=== PATIENT | female | born 1955 | race Hispanic/Latino ===

== ENCOUNTER 2018-02-20 23:50 | Emergency (ER) | payer OTHER ==
[~2018-02-20] VITALS: Ht 154.9 cm; Wt 104.3 kg
[2018-02-21] MEDS ORDERED: ZIPRASIDONE 20 MG VIAL IM STA (00:51)
[2018-02-21] MEDS ORDERED: BENADRYL25 M1 PO (00:54)
[2018-02-21] MEDS ORDERED: PEPCID20 MG PO (00:54)
[2018-02-21] MEDS ORDERED: MEDROL4 MG PO (00:54)
[2018-02-21] MEDS ORDERED: ZIPRASIDONE 20 MG VIAL IM ONE (01:02)
== END 2018-02-21 01:00 | disposition home or self-care (01) ==
LOC: FSED 23:50
DX: R21 Rash and other nonspecific skin eruption (principal); T36.0X4A Poisoning by penicillins, undetermined, initial encounter; I10 Essential (primary) hypertension; F41.9 Anxiety disorder, unspecified
CPT/HCPCS: 99282; J3486

== ENCOUNTER → 2019-05-08 | Outpatient (CLI) | payer MEDICARE, OTHER ==
[~2019-05-08] MED LIST: BENADRYL25 M1 PO; MEDROL4 MG PO; PEPCID20 MG PO
--- NOTE | 2019-05-08 14:38 | Diagnostic Imaging Report ---
Bone density study Clinical History: Osteoporosis screening Bone mineral density measurement Lumbar spine 1.051 gm/cm2 Femoral neck 0.772 gm/cm2 Standard deviation from young adult population (T-score) Lumbar spine 0.0 Femoral neck -0.9 Standard deviation for age adjusted population (Z-score) Lumbar spine 1.8 Femoral neck 0.6 Comments: The alignment of lumbar spine and femoral necks are satisfactory. There is no osteoporosis or osteopenia of the lumbar spine and femoral necks. Diagnostic criteria for osteoporosis BMD: Bone mineral density Normal: BMD measurement less than one standard deviation from young adult population Osteopenia: BMD measurement between 1 and 2.5 standard deviations Osteoporosis: BMD measurement greater than 2.5 standard deviations Severe osteoporosis: Osteoporosis and one or more fragility fractures Signed by: Dr. Chino Stevens MD on 05/08/2019 2:36 PM
== END ==
LOC: MAMMO 12:41
PROVIDERS: ATTEND Family Medicine
DX: Z12.31 Encounter for screening mammogram for malignant neoplasm of breast (principal); Z13.820 Encounter for screening for osteoporosis; Z78.0 Asymptomatic menopausal state
CPT/HCPCS: 77067; 77080

== ENCOUNTER → 2019-09-07 | Day surgery (SDC) | payer MEDICARE, OTHER ==
[2019-09-04 12:03] LABS: BASOPHILS # (AUTO) 0.1 (0.0-0.1); BASOPHILS % 0.6 % (0.0-1.0); EOSINOPHILS # (AUTO) 0.1 (0.0-0.4); EOSINOPHILS % 1.6 % (0.0-6.0); HEMATOCRIT 45.6 % (34.2-44.1); HEMOGLOBIN 14.8 g/dL (12.0-16.0); LYMPHOCYTES # (AUTO) 3.5 (1.0-3.2); MEAN CORPUSCULAR HEMOGLOBIN 28.6 pg (28-32); MEAN CORPUSCULAR HGB CONC 32.5 g/dL (31-35); MONOCYTES # (AUTO) 0.4 (0.2-0.8); MONOCYTES % 5.3 % (4.4-11.3); NEUTROPHILS # (AUTO) 3.9 (2.1-6.9); NEUTROPHILS % 48.2 % (38.7-80.0); PLATELET COUNT 245 x10e3/uL (140-360); RED BLOOD COUNT 5.18 x10e6/uL (3.6-5.1); RED CELL DISTRIBUTION WIDTH 12.9 % (11.7-14.4)
[~2019-09-07] MED LIST changes: +LIDOCAINE HCL 2% LOCAL INJ 5 ML SDV VIAL INJ ONE; +LIPITOR10 MG PO; +PROPOFOL IV EMULSION 10 MG/ML 20 ML VIAL ONE; +SERTRALINE HCL50 MG PO
[2019-09-07 08:20] VITALS: BP 119/78
== END | disposition home or self-care (01) ==
LOC: OR 05:55
PROVIDERS: ATTEND Internal Medicine Gastroenterology
DX: Z12.11 Encounter for screening for malignant neoplasm of colon (principal); D12.4 Benign neoplasm of descending colon; K57.30 Diverticulosis of large intestine without perforation or abscess without bleeding; K64.8 Other hemorrhoids; Z71.3 Dietary counseling and surveillance; G47.33 Obstructive sleep apnea (adult) (pediatric); K76.0 Fatty (change of) liver, not elsewhere classified; E66.01 Morbid (severe) obesity due to excess calories; F32.9 Major depressive disorder, single episode, unspecified; F41.9 Anxiety disorder, unspecified; Z01.810 Encounter for preprocedural cardiovascular examination; Z01.812 Encounter for preprocedural laboratory examination; Z11.59 Encounter for screening for other viral diseases; Z68.41 Body mass index [BMI] 40.0-44.9, adult
CPT/HCPCS: 36415; 45385; 85025; 87635; 88305; 93005; J2001; J2704

== ENCOUNTER 2020-07-01 11:39 | Emergency (ER) | payer MEDICARE, OTHER ==
[~2020-07-01] VITALS: Ht 154.9 cm; Wt 104.3 kg
[~2020-07-01 11:39] MED LIST changes: -LIDOCAINE HCL 2% LOCAL INJ 5 ML SDV VIAL INJ ONE; -PROPOFOL IV EMULSION 10 MG/ML 20 ML VIAL ONE
[2020-07-01 13:46] VITALS: BP 133/70
== END 2020-07-01 13:45 | disposition home or self-care (01) ==
LOC: ER 12:42
DX: R51.9 Headache, unspecified (principal); H93.11 Tinnitus, right ear; R41.0 Disorientation, unspecified; I10 Essential (primary) hypertension; E78.5 Hyperlipidemia, unspecified; F41.9 Anxiety disorder, unspecified
CPT/HCPCS: 70450; 99283

== ENCOUNTER → 2020-10-02 | Outpatient (CLI) | payer MEDICARE | LOC: MERGE 09:03 → MAMMO 09:03 | PROVIDERS: ATTEND Internal Medicine | DX: Z12.31 Encounter for screening mammogram for malignant neoplasm of breast (principal) | CPT/HCPCS: 77067 ==

== ENCOUNTER 2022-02-02 05:18 | Emergency (ER) | payer MEDICARE, OTHER ==
[~2022-02-02] VITALS: Ht 154.9 cm; Wt 104.3 kg
[2022-02-02 06:12] VITALS: BP 151/69
== END 2022-02-02 06:14 | disposition home or self-care (01) ==
LOC: ER 05:23
DX: R10.13 Epigastric pain (principal); K21.9 Gastro-esophageal reflux disease without esophagitis; R06.00 Dyspnea, unspecified; I10 Essential (primary) hypertension; E78.5 Hyperlipidemia, unspecified; F41.9 Anxiety disorder, unspecified; G47.30 Sleep apnea, unspecified
CPT/HCPCS: 93005; 99283

== ENCOUNTER 2022-06-08 10:04 | Emergency (ER) | payer MEDICARE, OTHER ==
[~2022-06-08] VITALS: Ht 154.9 cm; Wt 104.3 kg
[2022-06-08] MEDS ORDERED: TRAMADOL HCL 50 MG TAB PO ONE (11:30)
== END 2022-06-08 12:58 | disposition home or self-care (01) ==
LOC: ER 11:06
DX: S83.8X2A Sprain of other specified parts of left knee, initial encounter (principal); X58.XXXA Exposure to other specified factors, initial encounter; M17.12 Unilateral primary osteoarthritis, left knee; G89.29 Other chronic pain; I10 Essential (primary) hypertension; F41.9 Anxiety disorder, unspecified; E78.5 Hyperlipidemia, unspecified; G47.30 Sleep apnea, unspecified
CPT/HCPCS: 99283

== ENCOUNTER → 2022-06-26 | Outpatient (RCR) | payer MEDICARE, OTHER | LOC: PT 06-25 07:33 | PROVIDERS: ATTEND Specialist | DX: M17.12 Unilateral primary osteoarthritis, left knee (principal) ==

== ENCOUNTER → 2022-07-13 | Outpatient (CLI) | payer MEDICARE, OTHER | LOC: MAMMO 08:03 | PROVIDERS: ATTEND Internal Medicine | DX: Z12.31 Encounter for screening mammogram for malignant neoplasm of breast (principal) | CPT/HCPCS: 77067 ==

== ENCOUNTER 2022-07-20 09:53 | Outpatient (RCR) | payer MEDICARE, OTHER | END 2022-07-26 | LOC: PT 09:53 | PROVIDERS: ATTEND Specialist | DX: M17.12 Unilateral primary osteoarthritis, left knee (principal) ==

== ENCOUNTER 2022-07-27 07:54 | Outpatient (RCR) | payer MEDICARE, OTHER | END 2022-08-26 | LOC: PT 07:54 | PROVIDERS: ATTEND Specialist | DX: M17.12 Unilateral primary osteoarthritis, left knee (principal); M62.81 Muscle weakness (generalized); M25.562 Pain in left knee ==

== ENCOUNTER 2023-01-25 13:55 | Outpatient (RCR) | payer MEDICARE, OTHER ==
[~2023-01-25 13:55] MED LIST changes: +IPRATROPIU0.2 MG/1 M INH; +MELATONIN3 MG PO; +PROVENTIL HFA6.7 GM INH; +TUMS ULTRA400 MG PO; +VITAMIN D31 ML
== END 2023-01-26 ==
LOC: PT 13:55
PROVIDERS: ATTEND Physician Assistant
DX: Z47.1 Aftercare following joint replacement surgery (principal); Z96.652 Presence of left artificial knee joint; S84.12XA Injury of peroneal nerve at lower leg level, left leg, initial encounter
CPT/HCPCS: 97110 ×10; 97162; G0283 ×4

== ENCOUNTER → 2023-02-25 | Outpatient (RCR) | payer MEDICARE, OTHER | LOC: PT 01-27 10:30 | PROVIDERS: ATTEND Physician Assistant | DX: Z47.1 Aftercare following joint replacement surgery (principal); Z96.652 Presence of left artificial knee joint; S84.12XA Injury of peroneal nerve at lower leg level, left leg, initial encounter | CPT/HCPCS: 97110 ×8; G0283 ×2 ==

== ENCOUNTER 2024-01-09 11:50 | Emergency (ER) | payer MEDICARE, OTHER ==
[~2024-01-09] VITALS: Ht 154.9 cm; Wt 98.0 kg
[2024-01-09 12:18] VITALS: TEMP 98.4
[2024-01-09 14:07] VITALS: PULSE 67; RESP 16; O2SAT 98
== END 2024-01-09 14:10 | disposition home or self-care (01) ==
LOC: ER 12:33
DX: S86.811A Strain of other muscle(s) and tendon(s) at lower leg level, right leg, initial encounter (principal); X58.XXXA Exposure to other specified factors, initial encounter; E78.5 Hyperlipidemia, unspecified; M54.9 Dorsalgia, unspecified; G89.29 Other chronic pain; F41.9 Anxiety disorder, unspecified; G47.30 Sleep apnea, unspecified
CPT/HCPCS: 93971; 99283

== ENCOUNTER 2024-01-25 14:45 | Outpatient (RCR) | payer MEDICARE, OTHER | END 2024-01-27 | LOC: PT 14:45 | PROVIDERS: ATTEND Podiatrist Foot & Ankle Surgery | DX: S86.811A Strain of other muscle(s) and tendon(s) at lower leg level, right leg, initial encounter (principal) ==

== ENCOUNTER → 2024-07-11 | Outpatient (REF) | payer MEDICARE, OTHER | LOC: MAMMO 08:13 | PROVIDERS: ATTEND Internal Medicine | DX: Z12.31 Encounter for screening mammogram for malignant neoplasm of breast (principal) | CPT/HCPCS: 77067 ==